=== PATIENT | female | born 1950 | race Caucasian/White ===

== ENCOUNTER 2017-11-30 09:12 | Day surgery (SDC) | payer BC, OTHER ==
[2017-11-25 11:26] VITALS: BMI 21.7
--- NOTE | 2017-11-29 11:58 | HP ---
DATE OF ADMISSION: 11/30/2017 BRIEF HISTORY: This is a 66-year-old female with known gallbladder stones. She was fine up until the end of October when she developed sharp pain in the right upper abdomen with radiation to the back and shoulder. This was associated with some mild nausea. She underwent an ultrasound that demonstrated a large gallstone as well as smaller gallstones in the neck of the gallbladder with significant wall thickening. There was no evidence of pericholecystic fluid. These findings were suspicious for cholecystitis. The patient was managed medically and now is here for a laparoscopic cholecystectomy. Patient denies a change in stool color, urine color. No fever, chills, or sweats. PAST MEDICAL HISTORY: Significant for hypertension, hypercholesterolemia. Patient has a history of prolapsed mitral valve. PAST SURGICAL HISTORY: She has had no abdominal surgeries. ALLERGIES: None. SOCIAL HISTORY: Patient is retired. She does not smoke or drink. MEDICATIONS: Inderal and Crestor. PHYSICAL EXAMINATION: HEENT: There is no icterus. Abdomen: Soft, nontender, nondistended. IMPRESSION/PLAN: Symptomatic biliary disease, biliary colic, cholelithiasis. This is a 66-year-old female with bouts of biliary colic, possible early cholecystitis approximately 2 weeks ago. At this time, the patient is asymptomatic and has recovered well with medical management. We will plan for a laparoscopic cholecystectomy, possible open. The indications, alternatives, and complications of the procedure discussed. Questions answered. We will plan to obtain written consent the day of surgery. Cezar SANTAMARIA [id number] cc: Lauretn Ta MD
[2017-11-30] MEDS ORDERED: oxyCODONE HCL 5 MG TABLET PO PRN (10:58)
[2017-11-30] MEDS ORDERED: morphine SULFATE 4 MG/ML VIAL IVPB PRN (10:58)
[2017-11-30] MEDS ORDERED: D5-1/2NS+20 MEQ KCL - 20 MEQ/1,000 ML INFUS.BAG IV SCH (11:00)
[2017-11-30] MEDS ORDERED: MIDAZOLAM HCL 2 MG/2 ML SINGLE DOSE VIAL ONE (11:04)
[2017-11-30] MEDS ORDERED: fentaNYL CITRATE 250 MCG/5 ML VIAL ONE (11:04)
[2017-11-30] MEDS ORDERED: PROPOFOL 20 ML ONE (11:04)
[2017-11-30] MEDS ORDERED: ROCURONIUM BROMIDE 50 MG/5 ML VIAL ONE (11:05)
[2017-11-30] MEDS ORDERED: ceFAZolin SODIUM 1 GM VIAL ONE (11:23)
[2017-11-30] MEDS ORDERED: ONDANSETRON 4 MG/2 ML VIAL ONE (11:25)
[2017-11-30] MEDS ORDERED: DEXAMETHASONE SOD PHOSPHATE 4 MG/1 ML VIAL ONE (11:25)
[2017-11-30] MEDS ORDERED: ePHEDrine SULFATE 50 MG/1 ML AMPULE ONE (11:27)
[2017-11-30] MEDS ORDERED: ONDANSETRON 4 MG/2 ML VIAL IVPUSH PRN (11:43)
[2017-11-30] MEDS ORDERED: LACTATED RINGERS SOLUTION 1,000 ML IV SCH (11:45)
[2017-11-30] MEDS ORDERED: NEOSTIGMINE METHYLSULFATE 0.5 MG/ML - 10 ML MDV ONE (12:13)
[2017-11-30] MEDS ORDERED: GLYCOPYRROLATE 0.2 MG/1 ML VIAL ONE (12:16)
--- NOTE | 2017-11-30 20:17 | OP ---
DATE OF OPERATION: 11/30/2017 PREOPERATIVE DIAGNOSES: Symptomatic cholelithiasis, biliary colic. POSTOPERATIVE DIAGNOSES: Acute cholecystitis, cholelithiasis. PROCEDURE: Laparoscopic cholecystectomy, peritoneal lavage. SURGEON: Derick Lundberg MD OPTICAL SALES ASSOCIATE: Lazaro Aguirre MD ANESTHESIA: Katie Conrad MD (general). ESTIMATED BLOOD LOSS: Minimal. SPECIMEN: Gallbladder. INDICATION FOR PROCEDURE: This is a 66-year-old female who presented to the hospital with acute onset of right upper quadrant and epigastric pain. She was worked up and diagnosed with having biliary disease. She was managed medically and discharged. She is here today for a laparoscopic cholecystectomy. DESCRIPTION OF PROCEDURE: Patient identified and appropriately positioned on the operating room table. After placement of general anesthesia, the abdomen was prepped and draped in the usual sterile fashion with ChloraPrep. An infraumbilical incision was made, deepened to the subcutaneous tissue. The fascia was divided sharply. The peritoneum incised under direct vision. A Veress needle, followed by a structural needle placed. The remaining 3 ports (all 5 mm) were placed under direct vision. The gallbladder identified in the right upper quadrant. It had changes consistent with acute cholecystitis. The wall was thickened and difficult to grasp. The gallbladder was reflected over the dome of the liver in standard fashion, going from lateral to medial. The neck and infundibulum of the gallbladder identified, followed by the cystic duct. The cystic duct circumferentially isolated, clipped, and then divided. The cystic artery identified in a similar fashion, clipped, and then divided. The gallbladder itself was removed from the liver bed with cautery as well as sharp dissection due to its acute nature. The specimen was then placed to the side, and the liver bed was irrigated, the operative field made hemostatic with cautery as needed. The abdomen underwent 2 L of warm saline lavage to irrigate and retrieved, noted to be clear. The liver bed was hemostatic as well. The ports were removed. Port sites were hemostatic. The gallbladder itself had to be removed from the umbilical port site, and the umbilical port site had to be lengthened significantly to facilitate removal of the chronic and acutely inflamed gallbladder with large stones. The umbilical port site was then reapproximated with interrupted 0 Vicryl suture. All skin closed with 4-0 subcuticular Biosyn, followed by Dermabond. At the conclusion of this case, sponge and needle counts were correct. ATTESTATION: A brief operative note handwritten on the preprinted form. [facility] will be queried prior to giving any narcotics. Cezar SANTAMARIA [id number] cc: Laurent Ta MD MTDD
[2017-11-30 20:53] VITALS: TEMP 98.6
[2017-11-30] MEDS: ACETAMINOPHEN 325 MG TABLET (FP) PO PRN (21:43)
[2017-12-01] MEDS: ACETAMINOPHEN 325 MG TABLET (FP) PO PRN (05:46)
[2017-12-01 06:59] VITALS: BP 131/67; PULSE 70
[2017-12-01] MEDS ORDERED: PT OWN MED DRAWER 7, Y5N ONE (09:06)
--- NOTE | 2017-12-01 09:39 | PN ---
Progress Note (short form) - Note Progress Note: 66F POD1 s/p lap cholecystectomy under [facility]T. Pt states that pain is well controlled and reports no anesthetic complications. AVSS. Pt seen resting comfortably. D/C planning per primary team.
[2017-12-01] MEDS ORDERED: ENOXAPARIN NA (PORCINE) 40 MG/0.4 ML DISP.SYRIN SQ SCH (10:00)
[2017-12-01] MEDS ORDERED: PANTOPRAZOLE SODIUM 40 MG VIAL IVPUSH SCH (10:00)
--- NOTE | 2017-12-02 11:45 | PATH ---
Surgical Pathology Report Patient Name: KEYUR BRUSH [facility]. Rec. #: [id number] /Age/Gender: 1950 (Age: 66) / F Account: [id number] Location: [facility] Taken: 11/30/2017 Received: 11/30/2017 Reported: 12/02/2017 Physicians: Derick Lundberg Specimen(s) Received GALLBLADDER Clinical History Cholelithiasis Final Diagnosis GALLBLADDER, CHOLECYSTECTOMY: CHRONIC CHOLECYSTITIS AND CHOLELITHIASIS. Electronically Signed Manuel Godinez M.D. Gross Description Received in formalin, labeled "gallbladder," is a 11.5 x 4.2 x 4.0 cm. gallbladder with a 0.3 cm. in length portion of cystic duct attached. The outer surface is borges-pink and varies from smooth to shaggy. The lumen contains clear mucinous material as well as 2 yellow-brown, irregular choleliths averaging 3 cm in greatest dimension. The mucosa is trabeculated and eroded. The wall of the gallbladder averages 0.2 cm. in thickness. People Manager sections are submitted in one cassette. 12/01/2017 saudi12/01/2017
== END 2017-12-01 10:00 | disposition home or self-care (01) ==
LOC: FASU 09:12 → FM/S 16:12 → FASU 12-01 10:00
PROVIDERS: ATTEND Surgery
PROC: 0FT44ZZ Resection of Gallbladder, Percutaneous Endoscopic Approach (ICD-10-PCS; principal; 2017-11-30 11:08)
DX: K81.0 Acute cholecystitis (principal)
CPT/HCPCS: 88304-TC; 94760

== ENCOUNTER 2021-06-10 04:48 | Day surgery (SDC) | payer OTHER ==
[2021-06-09 07:44] VITALS: BMI 24.5
[2021-06-10] MEDS ORDERED: KETAMINE HCL 200 MG/20 ML VIAL ONE (07:05)
[2021-06-10 09:38] VITALS: BP 169/73; PULSE 60; TEMP 98
== END 2021-06-10 09:30 | disposition home or self-care (01) ==
LOC: JASU-ENDO 04:48
PROVIDERS: ATTEND Internal Medicine Gastroenterology
PROC: 0DBH8ZX Excision of Cecum, Via Natural or Artificial Opening Endoscopic, Diagnostic (ICD-10-PCS; 2021-06-10)
PROC: 0DBK8ZX Excision of Ascending Colon, Via Natural or Artificial Opening Endoscopic, Diagnostic (ICD-10-PCS; principal; 2021-06-10 08:14)
DX: Z12.11 Encounter for screening for malignant neoplasm of colon (principal); D12.2 Benign neoplasm of ascending colon; D17.9 Benign lipomatous neoplasm, unspecified; K57.30 Diverticulosis of large intestine without perforation or abscess without bleeding; Z86.010 Personal history of colon polyps; Z80.0 Family history of malignant neoplasm of digestive organs; I10 Essential (primary) hypertension
CPT/HCPCS: 88305-TC